=== PATIENT | female | born 1990 | race Caucasian/White ===

== ENCOUNTER 2016-12-07 07:34 | Emergency (ER) | payer BC ==
[2016-12-07] MEDS ORDERED: Ondansetron INJ* 2 MG/ML VIAL IV ONE (07:55)
[2016-12-07] MEDS ORDERED: NS 0.9% 1000 ML* 2,000 ML IV ONE (07:55)
--- NOTE | 2016-12-07 08:18 | ED ---
Influenza-Like Illness - HPI Summary HPI Summary: Patient presents with nausea that began at approximately 9:00pm last night. She began vomiting two hours later and has every 30 minutes since. She denies fever , abdominal pain, diarrhea, headache, neck pain or sore throat. She has had a runny nose and congestion for about a week. 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 She denies exposure to food or other known toxins. - History of Current Complaint Chief Complaint: EDNauseaVomitDiarrh Time Seen by Provider: 12/07/16 08:05 Hx Obtained From: Patient, Family/Conference Assistant Onset/Duration: Gradual Onset, Lasting Hours Severity: Severe Associated Signs & Symptoms: Nasal Congestion, Vomiting Related Hx: Possible Flu/Infectious Exposure - Allergy/Home Medications Allergies/Adverse Reactions: Allergies Allergy/AdvReac Type Severity Reaction Status Date / Time Azithromycin [From Zithromax] Allergy Hives Verified 12/21/13 06:20 PMH/Surg Hx/FS Hx/Imm Hx Previously Healthy: Yes - Immunization History Date of Tetanus Vaccine: UP TO DATE Date of Influenza Vaccine: NONE Infectious Disease History: No Infectious Disease History: Denies: Traveled Outside the [place] in Last 30 Days - Social History Occupation: Employed Full-time Lives: With Family Alcohol Use: None Substance Use Type: Reports: None Smoking Status (MU): Never Smoked Tobacco Review of Systems Positive: Chills Positive: Nasal Discharge. Negative: Sore Throat, Ear Ache Negative: Chest Pain Negative: Cough Positive: Vomiting, Nausea. Negative: Diarrhea Positive: no symptoms reported Negative: Myalgia Negative: Headache, Weakness, Paresthesia, Numbness All Other Systems Reviewed And Are Negative: Yes Physical Exam Triage Information Reviewed: Yes Vital Signs On Initial Exam: Initial Vitals Temp Pulse Resp BP Pulse Ox 98.0 F 154 18 126/85 99 12/07/16 07:36 12/07/16 07:36 12/07/16 07:36 12/07/16 07:36 12/07/16 07:36 Vital Signs Reviewed: Yes Appearance: Positive: Well-Appearing, No Pain Distress, Thin Skin: Positive: Warm, Skin Color Reflects Adequate Perfusion, Dry, Soft Head/Face: Positive: Normal Head/Face Inspection Eyes: Positive: EOMI, DEV, Conjunctiva Clear ENT: Positive: Hearing grossly normal, Pharynx normal Neck: Positive: Supple, Nontender, No Lymphadenopathy Respiratory/Lung Sounds: Positive: Clear to Auscultation, Breath Sounds Present Cardiovascular: Positive: Tachycardia Abdomen Description: Positive: Nontender, Soft. Negative: CVA Tenderness (R), CVA Tenderness (L), Distended, Guarding Bowel Sounds: Positive: Hypoactive Musculoskeletal: Positive: Strength/ROM Intact. Negative: Edema Left, Edema Right Neurological: Positive: Sensory/Motor Intact, Alert, Oriented to Person Place, Time, NV Bundle Intact Distally Psychiatric: Positive: Affect/Mood Appropriate AVPU Assessment: Alert Diagnostics - Vital Signs Vital Signs Temp Pulse Resp BP Pulse Ox 12/07/16 07:36 98.0 F 154 18 126/85 99 - Laboratory Result Diagrams: 12/07/16 08:16 12/07/16 08:16 Lab Statement: Any lab studies that have been ordered have been reviewed, and results considered in the medical decision making process. Re-Evaluation - Re-Evaluation First Eval Re-Evaluation Time: 09:40 Change: Improved Comment: Patient's nausea has improved. Flu Symptom Course/Dx - Diagnoses Differential Diagnosis/HQI/PQRI: Positive: Bronchitis, Influenza, Pneumonia, RSV , Upper Respiratory Infection Provider Diagnoses: Gastroenteritis Discharge - Discharge Plan Condition: Stable Disposition: HOME Prescriptions: Ondansetron [Zofran Odt] 4 mg PO QID PRN #20 tab PRN Reason: Nausea Patient Education Materials: Gastroenteritis (ED) Additional Instructions: Please use the anti-nausea medication as needed. Get plenty of rest and drink extra fluids. Follow-up with your PCP if your symptoms do not improve in 2-4 days. Return to the emergency department if your symptoms worsen.
[2016-12-07 08:31] LABS: Hematocrit 43 % (35-47); Hemoglobin 14.5 g/dl (12.0-16.0); Mean Corpuscular HGB Conc 34 g/dl (31-36); Mean Corpuscular Hemoglobin 31 pg (27-31); Mean Corpuscular Volume 90 fL (80-97); Mean Platelet Volume 8 um3 (7.4-10.4); Red Blood Count 4.76 10^6/ul (4.0-5.4); Red Cell Distribution Width 13 % (10.5-15); White Blood Count 11.4 10^3/ul (3.5-10.8)
[2016-12-07 08:56] LABS: ALT 14 U/L (7-52); AST 17 U/L (13-39); Albumin 4.5 g/dL (3.2-5.2); Alkaline Phosphatase 38 U/L (34-104); Anion Gap 9 mmol/L (2-11); BUN/Creatinine Ratio 24.4 (8-20); Blood Urea Nitrogen 20 mg/dL (6-24); C Reactive Protein 6.95 mg/L (< 5.00); CO2 Carbon Dioxide 27 mmol/L (22-32); Calcium 9.3 mg/dL (8.6-10.3); Chloride 103 mmol/L (101-111); EGFR African American 109.2 (>60); EGFR Non-African American 84.9 (>60); Globulin 2.5 g/dL (2-4); Glucose 132 mg/dL (70-100); Lipase 18 U/L (11.0-82.0); Potassium 3.3 mmol/L (3.5-5.0); Sodium 139 mmol/L (133-145)
[2016-12-07] MEDS ORDERED: NS 0.9% 1000 ML* 1,000 ML IV ONE ×2 (09:29→10:40)
[2016-12-07] MEDS ORDERED: Ondansetron ODT TAB* 4 MG PO ONE (11:31)
[2016-12-07 11:42] VITALS: BP 109/54
== END 2016-12-07 11:41 | disposition home or self-care (01) ==
LOC: ED 07:34
DX: K52.9 Noninfective gastroenteritis and colitis, unspecified (principal); Z88.1 Allergy status to other antibiotic agents
CPT/HCPCS: 36415; 80053; 83605; 83690; 84702; 85025; 86140; 93005; 96360; 96374; 99282; A9270-GY; J2405

== ENCOUNTER 2017-12-17 17:33 | Emergency (ER) | payer BC ==
[2017-12-17 20:08] LABS: ABS Basophils 0.1 10^3/ul (0-0.2); ABS Eosinophils 0.1 10^3/ul (0-0.6); ABS Lymphocytes 3.4 10^3/ul (1.0-4.8); ABS Monocytes 0.6 10^3/ul (0-0.8); ABS Neutrophils 7.2 10^3/ul (1.5-7.7); ABS Nucleated RBC 0.1 10^3/ul; Eosinophil % 0.7 % (0-6); Hematocrit 41 % (35-47); Hemoglobin 14.3 g/dl (12.0-16.0); Lymphocyte % 30.4 % (25-47); Mean Corpuscular HGB Conc 35 g/dl (31-36); Mean Corpuscular Hemoglobin 32 pg (27-31); Mean Corpuscular Volume 90 fL (80-97); Mean Platelet Volume 7 um3 (7.4-10.4); Nucleated Red Blood Cells % 0.5; Platelet Count 360 10^3/ul (150-450); Red Cell Distribution Width 13 % (10.5-15); White Blood Count 11.4 10^3/ul (3.5-10.8)
[2017-12-17 20:23] LABS: EGFR Non-African American 86.7 (>60)
[2017-12-17] MEDS ORDERED: Iohexol 350* (CONTRAST) 500 ML MDV IV ONE (22:10)
--- NOTE | 2017-12-17 23:49 | ED ---
Antonio Vargas Angela, scribed for Dayna Macedo MD on 12/17/17 at 2344 . Progress - Progress Note Progress Note: This pt was signed out by Dr. Vásquez, pending disposition, awaiting CTA chest. CTA chest, as read by radiologist: IMPRESSION: No evidence of pathology. Dr. Macedo has reviewed this radiology report. CTA chest reveals no PE. Therefore pt will be discharged to home with follow up from her PCP. Pt will be discharged, in stable condition, with a diagnosis of atypical chest pain. Condition: Stable Disposition: Home Course/Dx - Diagnoses Provider Diagnoses: Atypical chest pain The documentation as recorded by the Antonio messina Angela accurately reflects the service I personally performed and the decisions made by Hellen christopher Abdul, MD.
[2017-12-18 00:01] VITALS: BP 102/68
--- NOTE | 2017-12-18 07:49 | RAD ---
INDICATION: Chest tightness COMPARISON: None TECHNIQUE: PA and lateral views of the chest were obtained. FINDINGS: The heart and mediastinum are normal in size and contour. The lungs are grossly clear. There is no evidence of large pleural effusion. Visualized bones are normal for the patient's age. There is no radiographic evidence of free air beneath the diaphragm IMPRESSION: No radiographic evidence of acute cardiopulmonary disease.
--- NOTE | 2017-12-18 08:06 | RAD ---
HISTORY: Chest pain, shortness of breath COMPARISONS: None relevant available at the time dictation TECHNIQUE: Multiple contiguous axial CT scans of the chest were obtained after the administration of nonionic intravenous contrast, timed to the pulmonary arterial phase of contrast enhancement.. Coronal and sagittal multiplanar reformations are also submitted for review. FINDINGS: NECK AND THYROID: The lower neck and thyroid are unremarkable. CHEST WALL: There is no lower cervical, axillary, or supraclavicular lymphadenopathy by size criteria. HEART AND PERICARDIUM: The heart is unremarkable. AORTA AND PULMONARY VASCULATURE: There is no pulmonary arterial filling defect to suggest pulmonary embolism. There is no linear filling defect within the aorta to suggest aortic dissection. MEDIASTINUM: There is no mediastinal lymphadenopathy by size criteria. DORCAS: There is no hilar lymphadenopathy by size criteria. AIRWAY AND ESOPHAGUS: The airway is unremarkable, without endobronchial filling defect. The esophagus is grossly normal. LUNG PARENCHYMA: The lungs are clear. PLEURA: No pleural abnormalities are noted. UPPER ABDOMEN: The upper abdomen is unremarkable. BONES AND SOFT TISSUES: No bone or soft tissue abnormalities are noted. OTHER: None. IMPRESSION: NO PULMONARY ARTERIAL FILLING DEFECT TO SUGGEST PULMONARY EMBOLISM.
== END 2017-12-18 00:01 ==
LOC: ED 17:33
DX: R07.89 Other chest pain (principal)
CPT/HCPCS: 36415; 71046; 71275; 80053; 83605; 84484; 85025; 93005; 99283; Q9967

== ENCOUNTER 2021-07-09 07:34 | Inpatient (IN) ==
[2021-07-09] MEDS ORDERED: Buffered Lidocaine 1% SYRIN 1 ml INTRADERM ONE (08:25)
[2021-07-09] MEDS ORDERED: Lactated Ringers 1000 ml BAG 1,000 ML IV ONE (08:25)
[2021-07-09 09:33] LABS: Urine Benzodiazepine Screen None Detected (None Detect); Urine Cannabinoids Screen None Detected (None Detect); Urine Opiates Screen None Detected (None Detect)
[2021-07-09 09:42] LABS: Rapid COVID-19 Molecular Undetected (Undetected)
[2021-07-09] MEDS ORDERED: Oxytocin in LR 20 UNITS/1,000 ML BAG IVPB SCH (21:00)
[2021-07-09] MEDS: Lactated Ringers 1000 ml BAG 1,000 ML IV SCH (21:32)
[2021-07-09] MEDS ORDERED: Ondansetron 4 mg VIAL 2 MG/ML 2 ml VIAL IV PRN (21:35)
[2021-07-09 21:43] LABS: ABS Basophils 0.1 10^3/ul (0-0.2); ABS Eosinophils 0.1 10^3/ul (0-0.6); ABS Lymphocytes 2.1 10^3/ul (1.0-4.8); ABS Monocytes 0.9 10^3/ul (0-0.8); ABS Neutrophils 9.4 10^3/ul (1.5-7.7); Eosinophil % 0.5 %; Hematocrit 39 % (35-47); Hemoglobin 13.1 g/dL (12.0-16.0); Lymphocyte % 16.9 %; Mean Corpuscular HGB Conc 34 g/dL (31-36); Mean Corpuscular Hemoglobin 32 pg (27-31); Mean Corpuscular Volume 96 fL (80-97); Mean Platelet Volume 8.6 fL (7.4-10.4); Platelet Count 251 10^3/uL (150-450); Red Blood Count 4.05 10^6 /uL (3.70-4.87); Red Cell Distribution Width 14 % (10-15); White Blood Count 12.5 10^3/uL (3.5-10.8)
[2021-07-09] MEDS ORDERED: Morphine 10 MG/ML VIAL (1 ml) IV ONE (21:46)
[2021-07-09] MEDS ORDERED: Promethazine INJ(RESTRICTED) 25 MG/ML 1 ml VIAL IV PRN (21:47)
[2021-07-10] MEDS ORDERED: Morphine 10 MG/ML VIAL (1 ml) IV ONE (05:06)
[2021-07-10] MEDS ORDERED: Promethazine INJ(RESTRICTED) 25 MG/ML 1 ml VIAL IV ONE (05:07)
[2021-07-10] MEDS: Lactated Ringers 1000 ml BAG 1,000 ML IV SCH (05:20)
[2021-07-10] MEDS ORDERED: OBEPIDURAL 250 ML EPIDURAL ONE (06:59)
[2021-07-10] MEDS ORDERED: Lactated Ringers 1000 ml BAG 1,000 ML IV ONE (08:20)
[2021-07-10] MEDS ORDERED: Lactated Ringers 1000 ml BAG 500 ML IV PRN ×2 (08:20)
[2021-07-10] MEDS ORDERED: Phenylephrine 40 mcg/mL 10mL (400mcg) SYRINGE IV PUSH PRN ×2 (08:20)
[2021-07-10] MEDS ORDERED: Sodium Citrate/Citric Acid LIQ 15 ML UDC PO PRN (08:20)
[2021-07-10] MEDS: OBEPIDURAL 250 ML EPIDURAL SCH (08:36)
[2021-07-10 08:58] LABS: Urine Appearance Clear; Urine Bilirubin Negative (Negative); Urine Blood 1+ (Negative); Urine Color Yellow; Urine Glucose Negative (Negative); Urine Ketones Trace (Negative); Urine Nitrite Negative (Negative); Urine Protein Negative (Negative); Urine Specific Gravity 1.008 (1.002-1.030); Urine Urobilinogen Negative (Negative)
[2021-07-10] MEDS ORDERED: Lactated Ringers 1000 ml BAG 1,000 ML IV SCH (09:00)
[2021-07-10 09:03] LABS: Urine Bacteria Absent (Absent); Urine Red Blood Cell 1+(3-5/hpf) (Absent); Urine Squamous Epithelial Cell Present (Absent); Urine White Blood Cell Trace(0-5/hpf) (Absent)
[2021-07-10] MEDS ORDERED: Oxytocin in LR 20 UNITS/1,000 ML BAG IVPB SCH ×2 (09:30→21:45)
[2021-07-10] MEDS ORDERED: Calcium Carb (TUMS) 500 mg CHEW TAB PO ONE ×2 (09:30→19:42)
[2021-07-11] MEDS ORDERED: fentaNYL 100 mcg/2 ml 50 MCG/ML VIAL ONE ×3 (00:53→06:18)
[2021-07-11] MEDS ORDERED: Lidocaine 2% w/ EPI 1:200,000 MPF 20 ML SDV VIAL ONE (00:53)
[2021-07-11] MEDS ORDERED: ceFOXitin 2 GM IVPREMIX 2 GM/50 ML BAG IVPB ONE (04:43)
[2021-07-11] MEDS ORDERED: Ondansetron 4 mg VIAL 2 MG/ML 2 ml VIAL IV PRN (05:02)
[2021-07-11] MEDS ORDERED: Naloxone 0.4 mg VIAL 0.4 mg/ml 1 ml VIAL IV PRN (05:02)
[2021-07-11] MEDS ORDERED: Naloxone 4 mg VIAL (10 ml) 2 MG in NS 0.9% 250 ml 250 ML IV PRN (05:02)
[2021-07-11] MEDS ORDERED: DiMENhydriNATE IV 50 mg/ml 1 ml VIAL IV PUSH PRN (05:02)
[2021-07-11] MEDS ORDERED: Metoclopramide 5 MG/ML VIAL (10 mg) IV PRN (05:02)
[2021-07-11] MEDS ORDERED: Chloroprocaine 3% 20 ml VIAL ONE ×2 (05:07→05:51)
[2021-07-11] MEDS ORDERED: Morphine PF AMP (0.5MG/ML) 5 MG/10 ML AMP ONE (05:32)
[2021-07-11] MEDS ORDERED: Ketamine HCL 50 mg/ml 10 ml VIAL (500 MG) ONE (05:56)
[2021-07-11] MEDS ORDERED: Sodium Bicarbonate 8.4% VIAL 1 MEQ/ML 50 ml VIAL (50 meq) ONE (06:25)
[2021-07-11] MEDS ORDERED: Methylergonovine 0.2 mg AMPULE 1 ml AMP ONE (07:02)
[2021-07-11] MEDS ORDERED: Methylergonovine 0.2 mg AMPULE 1 ml AMP IM ONE (07:11)
[2021-07-11] MEDS ORDERED: Witch Hazel PAD JAR TOPICAL PRN (07:11)
[2021-07-11] MEDS ORDERED: Acetaminophen IV 1 GM/100ML 100 ML IV ONE (07:17)
[2021-07-11] MEDS ORDERED: Lactated Ringers 1000 ml BAG 1,000 ML IV SCH (08:00)
[2021-07-12 07:28] LABS: ABS Eosinophils 0.3 10^3/ul (0-0.6); ABS Lymphocytes 2.9 10^3/ul (1.0-4.8); ABS Monocytes 1.2 10^3/ul (0-0.8); ABS Neutrophils 10.7 10^3/ul (1.5-7.7); Eosinophil % 1.7 %; Hematocrit 25 % (35-47); Hemoglobin 8.7 g/dL (12.0-16.0); Lymphocyte % 18.9 %; Mean Corpuscular HGB Conc 35 g/dL (31-36); Mean Corpuscular Hemoglobin 33 pg (27-31); Mean Corpuscular Volume 96 fL (80-97); Mean Platelet Volume 8.4 fL (7.4-10.4); Platelet Count 211 10^3/uL (150-450); Red Blood Count 2.64 10^6 /uL (3.70-4.87); Red Cell Distribution Width 14 % (10-15); White Blood Count 15.1 10^3/uL (3.5-10.8)
[2021-07-12] MEDS: OBEPIDURAL 250 ML EPIDURAL SCH (07:39)
[2021-07-14 09:42] VITALS: BP 110/71
== END 2021-07-14 18:45 | disposition home or self-care (01) | DRG 540 ==
LOC: MCHOBOUT 07:34 → MCHOB 08:37
PROVIDERS: ADMIT Midwife; ATTEND Midwife